=== PATIENT | female | born 1945 | race Caucasian/White ===

== ENCOUNTER → 2018-12-30 11:35 | Outpatient (CLI) | payer MEDICARE, BC, SELFPAY ==
--- NOTE | 2018-12-30 11:43 | XR_ITS ---
EXAM: XR cervical spine 5V HISTORY: Neck pain and stiffness ITS.REASON: NECK STIFFNESS ORDERING PHYSICIAN: Lizette Long PATIENT AGE: 73 years COMPARISON: None FINDINGS: There is normal alignment. There is slight reversal of the cervical lordosis. Moderate to severe degenerative disc disease is present at C4-C5 C5-C6 and C6-C7. There is uncovertebral hypertrophy with mild foraminal narrowing on the right at C4-C5 and on the left at C3-C4 and C4-C5 and C6-C7. Prominent facet hypertrophic changes noted on the left at C3-C4 and C5. No fracture or dislocation. No lytic or blastic change. IMPRESSION: Cervical spondylosis with degenerative disc disease and foraminal narrowing as described above
== END ==
PROVIDERS: PCP Family Medicine; Visit Provider Nurse Practitioner Family
DX: M43.6 Torticollis (principal)
CPT/HCPCS: 72050

== ENCOUNTER → 2019-01-12 07:43 | Outpatient (CLI) | payer MEDICARE, BC, SELFPAY ==
--- NOTE | 2019-01-12 07:46 | MR_ITS ---
MR cervical spine wo con, MR 3-d myelogram/MRCP HISTORY: Bilateral neck pain . Unable to fully turn neck. . ITS.REASON: ARTHRITIS, STIFF NECK ORDERING PHYSICIAN: Lizette Long PATIENT AGE: 73 years Comparison: X-RAY 12-30-18. TECHNIQUE: Standard multiplanar multiecho sequences are performed without contrast. 3-D MIP and myelographic images are also rendered and reviewed FINDINGS: There is normal alignment. There are slight reversal of the mid cervical lordosis. The craniocervical junction has an unremarkable appearance. There is mild hypertrophic change along the posterior aspect of the dens. This is not causing any compression upon the cord however. C2-C3: Unremarkable. C3-C4: Mild degenerative disc disease. There is mild bilateral foraminal narrowing from uncovertebral hypertrophy. C4-C5: Degenerative disc disease with mild bilateral foraminal narrowing from uncovertebral hypertrophy. There is minimal bulging disc and there is narrowing of the canal at 10 mm. There is minimal contour deformity along the anterior aspect of the cord. C5-C6: Degenerative disc disease with bulging disc with associated endplate hypertrophic changes with narrowing of the canal at 10 mm with mild contour deformity along the anterior aspect of the cord.. There is mild right-sided foraminal narrowing from uncovertebral hypertrophy. C6-C7: Mild degenerative disc disease. C6-C7: Mild degenerative disc disease. No extruded herniated disc evident. IMPRESSION: 1. Multilevel cervical spondylosis with degenerative disc disease bulging disc along with facet ligamentum flavum hypertrophy. Please see above for detailed description at each level. There is mild narrowing of the canal at C4 C5 and C5-C6 2. C4-C5: Degenerative disc disease with mild bilateral foraminal narrowing from uncovertebral hypertrophy. There is minimal bulging disc and there is narrowing of the canal at 10 mm. There is minimal contour deformity along the anterior aspect of the cord. 3. C5-C6: Degenerative disc disease with bulging disc with associated endplate hypertrophic changes with narrowing of the canal at 10 mm with mild contour deformity along the anterior aspect of the cord.. There is mild right-sided foraminal narrowing from uncovertebral hypertrophy. 4. No extruded herniated disc evident
== END ==
PROVIDERS: PCP Nurse Practitioner Family; Visit Provider Nurse Practitioner Family
DX: M19.90 Unspecified osteoarthritis, unspecified site (principal); M43.6 Torticollis
CPT/HCPCS: 72141; 76376

== ENCOUNTER → 2022-03-25 09:57 | Outpatient (POV) | payer MEDICARE, BC, SELFPAY | PROVIDERS: Visit Provider Dermatology | DX: Z00.00 Encounter for general adult medical examination without abnormal findings (principal) ==

== ENCOUNTER 2023-08-31 15:26 | Emergency (ER) | payer MEDICARE, BC, SELFPAY ==
[2023-08-31 15:30] VITALS: BP 186/81; PULSE 58; RESP 22; TEMP 36.7; O2SAT 97; BMI 27.4
--- NOTE | 2023-08-31 15:36 | EXP.UTC ---
Discharge Plan Disposition Patient Disposition: Home, Self-Care Condition: Good Prescriptions Prescriptions: New methylprednisolone 4 mg Tablets,Dose Pack 4 mg PO DIRECTED Qty: 21 0RF Referrals Follow up/Referrals: Yosi Lo MD [Primary Care Provider] - See instructions Activity Restrictions/Add. Instructions Additional Instructions/Restrictions: Go home and rest. It would be best if you rested tomorrow too. Start the oral steroids tomorrow. Take them as directed. Follow up with your regular doctor. Follow up with orthopedics if you continue to have hip pain. I put in a referral to Dr. Wright. Please call and schedule an appointment. GO TO THE ER FOR ANY WORSENING SYMPTOMS OR CONCERN, ESPECIALLY BOWEL OR BLADDER ISSUES, SADDLE AREA NUMBNESS, FEVER, ETC Clinical Impressions Clinical Impression: Bursitis of left hip Instructions Patient Instructions: Bursitis, DI for Bursitis Discharge ED Provider: Chriss Priest [facility] [place] General Stated complaint: left side hip pain, no known accident Time Seen by Provider: 08/31/23 15:36 History of Present Illness Provider Complaint: She c/o left hip pain for the past 2 weeks. She denies any injury. Related Data Previous Rx's Medication Instructions Recorded methylprednisolone 4 mg tablets in 4 mg PO DIRECTED #21 tabs 08/31/23 a dose pack Allergies Allergy/AdvReac Type Severity Reaction Status Date / Time iodine Allergy Verified 08/31/23 15:49 [facility] Disclaimer: The information contained in this section may have been updated after the patient was seen, as this information can be updated by other users. Surgical History (Updated 08/31/23 @ 15:54 by Yasmeen Rachel RN) History of cholecystectomy History of tubal ligation Social History Smoking Status: Never smoker alcohol intake: never current occupational status: retired Travel in the last 8 weeks: None ROS Obtained: Yes All systems reviewed & no additional complaints except as documented Constitutional Constitutional: Denies chills and Denies fever(s) Eyes Eyes: Denies eye discharge ENT Ears, Nose, Mouth, and Throat: Denies dizziness, Denies otalgia and Denies sore throat Cardiovascular Cardiovascular: Denies chest pain Respiratory Respiratory: Denies shortness of breath, Denies chest congestion, Denies cough, Denies stridor and Denies wheezing Gastrointestinal Gastrointestingal: Denies nausea or vomiting Musculoskeletal Musculoskeletal: Reports as per HPI Integumentary/Breasts Skin/Breast: Denies rash Neurologic Neurologic: Denies dizziness and Denies paresthesias Allergic/Immunologic Allergic/Immunologic: Denies wheezing Physical Exam General General appearance: alert and in no apparent distress Head Head exam: atraumatic, normocephalic and normal inspection Eye Eye exam: Present normal appearance, PERRL and EOMI ENT ENT exam: Present normal exam, normal oropharynx, mucous membranes moist, TM's normal bilaterally and normal external ear exam Neck Neck exam: Present normal inspection, full ROM and trachea midline; Absent meningismus or lymphadenopathy Chest Chest inspection: Present normal inspection and symmetric chest wall rise; Absent tenderness Respiratory Respiratory exam: Present normal lung sounds bilaterally; Absent respiratory distress Cardiovascular Cardiovascular exam: Present regular rate and normal rhythm; Absent JVD Abdominal Exam Abdominal exam: Present soft and normal bowel sounds; Absent distention, tenderness or guarding Extremities Exam Extremities exam: Present normal capillary refill; Absent calf tenderness Expanded Lower Extremity Exam Left: Hip/Pelvis exam: Present pelvis stable, swelling, ecchymosis, deformity, dislocation, external rotation, internal rotation, shortening of leg, pain on hip/pelvis palpation, hip pain on leg movement, erythema, crepitus, laceration and abrasion; Absent full ROM or tenderness
--- NOTE | 2023-08-31 15:39 | XR_ITS ---
FINAL REPORT CLINICAL HISTORY: pain x 3 days no known trauma FINDINGS: LEFT HIP 2 views of the left hip and AP view of the pelvis are obtained. There is no acute fracture or dislocation. There are mild degenerative changes of the lower lumbar spine and bilateral hips. Visualized joint spaces are normally aligned. There is no acute soft tissue abnormality. IMPRESSION: No acute bony abnormality. Reviewed, Interpreted and Dictated by Damaso Fay III, MD Transcribed by Jennifer Baird Authenticated and [facility]
[2023-08-31 16:28] VITALS: BP 186/81; PULSE 58; RESP 22; TEMP 36.7; O2SAT 97
== END 2023-08-31 16:33 | disposition home or self-care (01) ==
PROVIDERS: Emergency Provider Nurse Practitioner Family; PCP Family Medicine
DX: M70.72 Other bursitis of hip, left hip (principal)
CPT/HCPCS: 73502; 96372; 99204; 99212; G0463

== ENCOUNTER 2024-10-13 12:52 | Emergency (ER) | payer MEDICARE, BC, SELFPAY ==
[2024-10-13 12:53] VITALS: BP 108/69; PULSE 66; RESP 16; TEMP 36.7; O2SAT 98; BMI 24.2
--- NOTE | 2024-10-13 12:57 | HMH.EDGENADL ---
Discharge Plan Disposition Patient Disposition: Home, Self-Care Condition: Fair Prescriptions Prescriptions: New ondansetron 4 mg tablet,disintegrating 4 mg PO Q6H PRN (Reason: nausea and vomiting) Qty: 10 0RF No Action methylprednisolone 4 mg Tablets,Dose Pack 4 mg PO DIRECTED Qty: 21 0RF Referrals Follow up/Referrals: Marc Wright DO [Staff Physician] - See instructions Courtney Oliveros APRN [Primary Care Provider] - See instructions Activity Restrictions/Add. Instructions Additional Instructions/Restrictions: Please use weightbearing as tolerated, elevate your extremity, please start taking an aspirin a day due to the immobilization, and utilize the crutches when trying to ambulate to prevent injury. Return to the ER for any increasing pain redness or swelling of your left lower leg. I have referred you to orthopedics. Please call on Thursday to make an appointment. Clinical Impressions Clinical Impression: Left knee sprain Qualifiers: Encounter type: initial encounter Involved ligament of knee: unspecified ligament Qualified Code(s): S83.92XA - Sprain of unspecified site of left knee, initial encounter Print Language Print Language: Filipino Discharge ED Provider: Sharad Nicolas General Adult HPI <JOSE Almazan - Last Filed: 10/13/24 15:05> General Chief complaint: Fall Stated complaint: L ankle knee pain ao Time Seen by Provider: 10/13/24 12:57 History of Present Illness HPI narrative: Patient presents for evaluation of a fall and left lower extremity injury. Patient states that she was going down to feed the ducks when she slipped landing in a hurdler stretch position. Her left leg was folded up underneath her and she landed on it with her right leg outstretched. 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 Patient with great difficulty manage to pull herself back up and hobble to the house. She states that she has had increasing difficulty bearing weight or moving her knee since. She also complains of ankle pain and left hip pain in the same side. She denies any other injury or trauma including neck pain back pain head pain and she did not hit any other area of her body. Related Data Previous Rx's ?Medication ?Instructions ?Recorded methylprednisolone 4 mg tablets in 4 mg PO DIRECTED #21 tabs 08/31/23 a dose pack ondansetron 4 mg disintegrating 4 mg PO Q6H PRN nausea and 10/13/24 tablet vomiting #10 tabs Allergies Allergy/AdvReac Type Severity Reaction Status Date / Time iodine Allergy Verified 08/31/23 15:49 [facility] <JOSE Almazan - Last Filed: 10/13/24 15:05> [facility] Disclaimer: The information contained in this section may have been updated after the patient was seen, as this information can be updated by other users. Surgical History (Updated 08/31/23 @ 15:54 by Yasmeen Rachel RN) History of tubal ligation History of cholecystectomy Social History (Updated 09/01/23 @ 14:55 by Chriss Priest APRN) Smoking Status: Never smoker alcohol intake: never current occupational status: retired <JOSE Almazan - Last Filed: 10/13/24 15:05> ROS Obtained: Yes Systems reviewed as appropriate & no additional complaints except as documented Physical Exam <JOSE Almazan - Last Filed: 10/13/24 15:05> General General appearance: alert and in no apparent distress Respiratory Respiratory exam: Present normal lung sounds bilaterally Cardiovascular Cardiovascular exam: Present regular rate Neurological Exam Neurological exam: Present alert and oriented X3 Medical Decision Making <JOSE Almazan - Last Filed: 10/13/24 15:05> Medical Records Medical records reviewed: Yes I reviewed the patient's medical records. Screening: Per USPSTF and CDC recommendations, given the prevalence of disease in our region, it is our hospital?s policy to screen for HIV and viral Hepatitis for all patients aged 18 and over and those with ongoing risk factors. Kai Inquiry Pt receiving controlled substance: No Vital Signs: 10/13/24 12:53 10/13/24 13:01 10/13/24 15:10 Temperature 98.0 F 98.6 F Temperature Source Oral Oral Pulse Rate 83 78 Pulse Rate [Left Radial] 66 Respiratory Rate 16 20 Blood Pressure 117/71 117/71 Blood Pressure [Right Arm] 108/69 L Blood Pressure Mean [Right Arm] 82 Blood Pressure Source Automatic Cuff 02 Sat by Pulse Oximetry 98 97 Oxygen Delivery Method Room Air Room Air Room Air Lab Data Lab results reviewed: Yes I reviewed the patient's lab results. Lab Results 10/13/24 13:15: WBC 6.2, RBC 4.20, Hgb 11.9 L, Hct 36.1 L, MCV 86.0, MCH 28.3, MCHC 32.9, RDW 16.8, Plt Count 239, MPV 8.5, Neut % (Auto) 59.5, Lymph % (Auto) 26.7, Sweet Grass % (Auto) 8.5, Eos % (Auto) 4.4, Baso % (Auto) 0.9, Neut # (Auto) 3.7, Lymph # (Auto) 1.7, Sweet Grass # (Auto) 0.5, Eos # (Auto) 0.3, Baso # (Auto) 0.1, PT 10.4, INR 0.92, Sodium 137, Potassium 4.3, Chloride 105, Carbon Dioxide 27, Anion Gap 9.3, BUN 14, Creatinine 0.60, Estimated Creat Clear 51, Estimated GFR 97, Est GFR ( Amer) 117, Glucose 115 H, Calcium 9.0, Total Bilirubin 0.4, AST 24, ALT 15, Alkaline Phosphatase 87, Total Protein 6.6, Albumin 4.0, Globulin 2.6, Albumin/Globulin Ratio 1.5, Hepatitis C Antibody Non reactive, HIV 1&2 Antibody Rapid Nonreactive 10/13/24 13:15 10/13/24 13:15 Orders (Tests/Meds): ED MEDICATIONS Discontinued Medications Generic Name Dose Route Start Last Admin Trade Name [place]q PRN Reason Stop Dose Admin Acetaminophen 1,000 mg 10/13/24 13:05 10/13/24 13:18 Acetaminophen 1,000mg/100ml Vial IV 10/13/24 13:06 1,000 mg ONCE ONE Administration Hydromorphone HCl 1 mg 10/13/24 13:05 10/13/24 13:18 Hydromorphone 2mg/Ml Syringe IV 10/13/24 13:06 1 mg ONCE ONE Administration Sodium Chloride 1,000 mls @ 999 mls/hr 10/13/24 13:05 10/13/24 13:18 Sod Chlor 0.9% 1000ml Bag IV 10/13/24 14:05 999 mls/hr .Q1H1M ONE Administration Ketorolac Tromethamine 15 mg 10/13/24 13:05 10/13/24 13:25 Ketorolac 30mg/Ml Vial IV 10/13/24 13:06 15 mg ONCE ONE Administration Ondansetron HCl 4 mg 10/13/24 13:05 10/13/24 13:18 Ondansetron 4mg/2ml Vial IV 10/13/24 13:06 4 mg ONCE ONE Administration Promethazine HCl 12.5 mg 10/13/24 14:05 10/13/24 14:08 Promethazine Hcl 25mg/Ml 1ml Vial IV 10/13/24 14:06 12.5 mg ONCE ONE Administration Sodium Chloride 25 ml 10/13/24 14:05 10/13/24 14:07 Sodium Chloride 0.9% 25ml Bag IV 10/13/24 14:06 25 ml ONCE ONE Administration ORDERS Category Date Time Status CT knee LT wo con Stat Cat Scan 10/13/24 14:28 Completed Ankle XR - Left minimum 3 Views [XR ankle LT min 3V] Exams 10/13/24 13:05 Completed Stat Femur XR left 2 views [XR femur LT 2V] Stat Exams 10/13/24 13:05 Completed Foot XR left minimum 3 views [XR foot LT min 3V] Stat Exams 10/13/24 13:34 Completed Knee XR left 3 views [XR knee LT 3V] Stat Exams 10/13/24 13:05 Completed Tibia/fibula XR left 2 views [XR tibia fibula LT 2V] Exams 10/13/24 13:05 Completed Stat XR hip LT 2-3V w/pelvis Stat Exams 10/13/24 13:05 Completed CBC w/Auto Diff [Complete Blood Count Auto Diff] Stat Lab 10/13/24 13:15 Completed CMP [Comprehensive Metabolic Panel] Stat Lab 10/13/24 13:15 Completed HIV (1&2) Antibody Rapid Stat Lab 10/13/24 13:15 Completed Hep C Ab with Reflex to RNA Stat Lab 10/13/24 13:15 Completed INR [Prothrombin Time INR] Stat Lab 10/13/24 13:15 Completed Medical Decision Narrative: In summary patient is a 9-year-old female who presents to the emergency department for evaluation of fall and left lower extremity injury. Patient is hemodynamically stable upon arrival, afebrile. Physical exam is remarkable for significant left knee swelling and tenderness to palpation medially primarily. Patient has exquisite tenderness to attempt of range of motion testing. Additionally patient is tender at the bilateral malleoli but no obvious bony deformity, she has tenderness in the left gluteus muscle but pelvis appears stable to compression. She is neurovascular intact distally. He has no other palpable or visible trauma elsewhere including a nontender dorsal spine has full C-spine range of motion and right lower extremity has full range of motion without neurovascular compromise or pain. Differential diagnosis includes fracture versus prosthetic disruption versus strain etc. Initial workup will be conducted with hematologic labs plain film x-rays.. Initial interventions include crystalloid bolus Toradol Tylenol Dilaudid. Initial workup reviewed by me shows that her hematologic labs are nonactionable and my informal interpretation of her plain film x-rays shows no acute fracture but does show significant knee effusion prior to radiology read, however radiology felt there could be possibly periprosthetic fractures on plain film imaging and recommended a noncontrast CT. I ordered as the radiology suggested and unfortunately I am unable to interpret due to scatter however the radiologist was able to confirm that there is no periprosthetic fracture. Given this while there is no acute fracture there is definitely soft tissue injury. However I feel patient will benefit from knee immobilization with weightbearing as tolerated and crutches and referral to orthopedics. Thus patient is appropriate for discharge and she will be placed on an aspirin a day for DVT prevention and strict return precautions. <Sharad Nicolas MD - Last Filed: 10/16/24 07:29> Vital Signs: 10/13/24 12:53 10/13/24 13:01 10/13/24 15:10 Temperature 98.0 F 98.6 F Temperature Source Oral Oral Pulse Rate 83 78 Pulse Rate [Left Radial] 66 Respiratory Rate 16 20 Blood Pressure 117/71 117/71 Blood Pressure [Right Arm] 108/69 L Blood Pressure Mean [Right Arm] 82 Blood Pressure Source Automatic Cuff 02 Sat by Pulse Oximetry 98 97 Oxygen Delivery Method Room Air Room Air Room Air Lab Data Lab Results 10/13/24 13:15: WBC 6.2, RBC 4.20, Hgb 11.9 L, Hct 36.1 L, MCV 86.0, MCH 28.3, MCHC 32.9, RDW 16.8, Plt Count 239, MPV 8.5, Neut % (Auto) 59.5, Lymph % (Auto) 26.7, Sweet Grass % (Auto) 8.5, Eos % (Auto) 4.4, Baso % (Auto) 0.9, Neut # (Auto) 3.7, Lymph # (Auto) 1.7, Sweet [place] # (Auto) 0.5, Eos # (Auto) 0.3, Baso # (Auto) 0.1, PT 10.4, INR 0.92, Sodium 137, Potassium 4.3, Chloride 105, Carbon Dioxide 27, Anion Gap 9.3, BUN 14, Creatinine 0.60, Estimated Creat Clear 51, Estimated GFR 97, Est GFR ( Amer) 117, Glucose 115 H, Calcium 9.0, Total Bilirubin 0.4, AST 24, ALT 15, Alkaline Phosphatase 87, Total Protein 6.6, Albumin 4.0, Globulin 2.6, Albumin/Globulin Ratio 1.5, Hepatitis C Antibody Non reactive, HIV 1&2 Antibody Rapid Nonreactive Orders (Tests/Meds): ED MEDICATIONS Discontinued Medications Generic Name Dose Route Start Last Admin Trade Name Freq PRN Reason Stop Dose Admin Acetaminophen 1,000 mg 10/13/24 13:05 10/13/24 13:18 Acetaminophen 1,000mg/100ml Vial IV 10/13/24 13:06 1,000 mg ONCE ONE Administration Hydromorphone HCl 1 mg 10/13/24 13:05 10/13/24 13:18 Hydromorphone 2mg/Ml Syringe IV 10/13/24 13:06 1 mg ONCE ONE Administration Sodium Chloride 1,000 mls @ 999 mls/hr 10/13/24 13:05 10/13/24 13:18 Sod Chlor 0.9% 1000ml Bag IV 10/13/24 14:05 999 mls/hr .Q1H1M ONE Administration Ketorolac Tromethamine 15 mg 10/13/24 13:05 10/13/24 13:25 Ketorolac 30mg/Ml Vial IV 10/13/24 13:06 15 mg ONCE ONE Administration Ondansetron HCl 4 mg 10/13/24 13:05 10/13/24 13:18 Ondansetron 4mg/2ml Vial IV 10/13/24 13:06 4 mg ONCE ONE Administration Promethazine HCl 12.5 mg 10/13/24 14:05 10/13/24 14:08 Promethazine Hcl 25mg/Ml 1ml Vial IV 10/13/24 14:06 12.5 mg ONCE ONE Administration Sodium Chloride 25 ml 10/13/24 14:05 10/13/24 14:07 Sodium Chloride 0.9% 25ml Bag IV 10/13/24 14:06 25 ml ONCE ONE Administration ORDERS Category Date Time Status CT knee LT wo con Stat Cat Scan 10/13/24 14:28 Completed Ankle XR - Left minimum 3 Views [XR ankle LT min 3V] Exams 10/13/24 13:05 Completed Stat Femur XR left 2 views [XR femur LT 2V] Stat Exams 10/13/24 13:05 Completed Foot XR left minimum 3 views [XR foot LT min 3V] Stat Exams 10/13/24 13:34 Completed Knee XR left 3 views [XR knee LT 3V] Stat Exams 10/13/24 13:05 Completed Tibia/fibula XR left 2 views [XR tibia fibula LT 2V] Exams 10/13/24 13:05 Completed Stat XR hip LT 2-3V w/pelvis Stat Exams 10/13/24 13:05 Completed CBC w/Auto Diff [Complete Blood Count Auto Diff] Stat Lab 10/13/24 13:15 Completed CMP [Comprehensive Metabolic Panel] Stat Lab 10/13/24 13:15 Completed HIV (1&2) Antibody Rapid Stat Lab 10/13/24 13:15 Completed Hep C Ab with Reflex to RNA Stat Lab 10/13/24 13:15 Completed INR [Prothrombin Time INR] Stat Lab 10/13/24 13:15 Completed Medical Decision Narrative: In summary patient is a 79-year-old female who presents to the emergency department for evaluation of fall and left lower extremity injury. Patient is hemodynamically stable upon arrival, afebrile. Physical exam is remarkable for significant left knee swelling and tenderness to palpation medially primarily. Patient has exquisite tenderness to attempt of range of motion testing. Additionally patient is tender at the bilateral malleoli but no obvious bony deformity, she has tenderness in the left gluteus muscle but pelvis appears stable to compression. She is neurovascular intact distally. He has no other palpable or visible trauma elsewhere including a nontender dorsal spine has full C-spine range of motion and right lower extremity has full range of motion without neurovascular compromise or pain. Differential diagnosis includes fracture versus prosthetic disruption versus strain etc. Initial workup will be conducted with hematologic labs plain film x-rays.. Initial interventions include crystalloid bolus Toradol Tylenol Dilaudid. Initial workup reviewed by me shows that her hematologic labs are nonactionable and my informal interpretation of her plain film x-rays shows no acute fracture but does show significant knee effusion prior to radiology read, however radiology felt there could be possibly periprosthetic fractures on plain film imaging and recommended a noncontrast CT. I ordered as the radiology suggested and unfortunately I am unable to interpret due to scatter however the radiologist was able to confirm that there is no periprosthetic fracture. Given this while there is no acute fracture there is definitely soft tissue injury. However I feel patient will benefit from knee immobilization with weightbearing as tolerated and crutches and referral to orthopedics. Thus patient is appropriate for discharge and she will be placed on an aspirin a day for DVT prevention and strict return precautions. I was consulted by the STEPHANE, and we discussed the complexity of the problems being addressed. I approved the treatment and management plan for this patient's care in the Emergency Department, thus performing a substantive portion of the medical decision making. Sharad Nicolas MD Critical Care <JOSE Almazan - Last Filed: 10/13/24 15:05> Critical Care Time Critical Care Time: No
[2024-10-13 13:01] VITALS: BP 117/71; PULSE 83; O2SAT 97
--- NOTE | 2024-10-13 13:05 | XR_ITS ---
PROCEDURE INFORMATION: Exam: XR Left Knee Exam date and time: 10/13/2024 1:24 PM Age: 79 years old Clinical indication: Pain and injury or trauma; Fall; Blunt trauma; Knee; Left; Additional info: Fall, lt leg pain TECHNIQUE: Imaging protocol: Radiologic exam of the left knee. Views: 3 views. COMPARISON: CR XR TIBIA FIBULA LT 2V 10/13/2024 1:21 PM FINDINGS: Bones/joints: Complete left knee arthroplasty in adequate alignment. Small periprosthetic linear lucencies are again noted at the posterior femoral component of the arthroplasty. Small suprapatellar effusion. No other acutely displaced skeletal fractures. No joint dislocation. Soft tissues: Mild anterior knee swelling IMPRESSION: 1. Again seen are small periprosthetic linear lucencies at the posterior femoral component of the arthroplasty. Suspicious for periprosthetic fractures versus artifact. Consider follow-up with noncontrast CT. 2. Small suprapatellar effusion.
--- NOTE | 2024-10-13 13:05 | XR_ITS ---
PROCEDURE INFORMATION: Exam: XR Left Hip Exam date and time: 10/13/2024 1:23 PM Age: 79 years old Clinical indication: Pain and injury or trauma; Fall; Blunt trauma (contusions or hematomas); Hip pain; Left hip; Additional info: Fall, lt leg pain TECHNIQUE: Imaging protocol: Radiologic exam of the left hip. Views: 2 or 3 views hip with pelvis when performed. COMPARISON: CR XR HIP LT 2-3V W/PELVIS 08/31/2023 3:46 PM FINDINGS: Bones/joints: Normal anatomic alignment. The bone density is normal for this patient's age. 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 Mild osteoarthritis of the right hip joint. There are mild degenerative changes of the sacroiliac joints. No acutely displaced fractures. No joint dislocation. No aggressive osseous lesions. Soft tissues: There is no significant soft tissue swelling. IMPRESSION: No acute skeletal pathology.
--- NOTE | 2024-10-13 13:05 | XR_ITS ---
PROCEDURE INFORMATION: Exam: XR Left Femur Exam date and time: 10/13/2024 1:22 PM Age: 79 years old Clinical indication: Pain and injury or trauma; Fall; Blunt trauma; Thigh or upper leg; Left; Hip; Additional info: Fall, lt leg pain TECHNIQUE: Imaging protocol: Radiologic exam of the left femur. Views: 2 views. COMPARISON: CR XR TIBIA FIBULA LT 2V 10/13/2024 1:21 PM FINDINGS: Bones/joints: Partially seen left knee arthroplasty. Please review knee films performed concomitantly. The bone density is normal for this patient's age. No acutely displaced fractures. No joint dislocation. Soft tissues: Mild anterior knee swelling. IMPRESSION: 1. No acute skeletal pathology. 2. Mild anterior knee swelling.
--- NOTE | 2024-10-13 13:05 | XR_ITS ---
PROCEDURE INFORMATION: Exam: XR Left Knee Exam date and time: 10/13/2024 1:21 PM Age: 79 years old Clinical indication: Pain and injury or trauma; Fall; Blunt trauma; Lower leg; Left TECHNIQUE: Imaging protocol: Radiologic exam of the left knee. Views: 1 or 2 views. COMPARISON: CR Ankle L 10/13/2024 1:20 PM FINDINGS: Bones/joints: Complete left knee arthroplasty in adequate alignment. Small periprosthetic linear lucencies at the posterior femoral component of the arthroplasty. Small suprapatellar effusion. No other acutely displaced skeletal fractures. No joint dislocation. Soft tissues: Mild anterior knee swelling IMPRESSION: 1. Small periprosthetic linear lucencies at the posterior femoral component of the arthroplasty. Suspicious for periprosthetic fractures versus artifact. Consider follow-up with noncontrast CT. 2. Small suprapatellar effusion.
--- NOTE | 2024-10-13 13:05 | XR_ITS ---
PROCEDURE INFORMATION: Exam: XR Left Ankle Exam date and time: 10/13/2024 1:20 PM Age: 79 years old Clinical indication: Pain and injury or trauma; Fall; Blunt trauma; Ankle; Left; Additional info: Fall, lt leg pain TECHNIQUE: Imaging protocol: Radiologic exam of the left ankle. Views: 3 or more views. COMPARISON: No relevant prior studies available. FINDINGS: Bones/joints: Chronic calcifications or osseous fragments inferior to the medial malleolus. Normal anatomic alignment. The bone density is normal for this patient's age. No acutely displaced fractures. No joint dislocation. Small plantar calcaneal spur. Small posterior calcaneal enthesophyte. Soft tissues: Moderate ankle swelling. IMPRESSION: 1. No acute skeletal pathology. 2. Moderate ankle swelling.
[2024-10-13] MEDS: ONDANSETRON 4MG/2ML VIAL 4 MG IV (13:18)
[2024-10-13] MEDS: HYDROMORPHONE 2MG/ML SYRINGE 1 MG IV (13:18)
[2024-10-13] MEDS: 0.9 % SODIUM CHLORIDE 1000ML 1,000 ML 999 ML IV (13:18)
[2024-10-13] MEDS: ACETAMINOPHEN 1,000MG/100ML VIAL 1000 MG IV (13:18)
[2024-10-13] MEDS: KETOROLAC 30MG/ML VIAL 15 MG IV (13:25)
--- NOTE | 2024-10-13 13:34 | XR_ITS ---
PROCEDURE INFORMATION: Exam: XR Left Foot Exam date and time: 10/13/2024 1:26 PM Age: 79 years old Clinical indication: Pain and injury or trauma; Fall; Blunt trauma; Foot; Left TECHNIQUE: Imaging protocol: Radiologic exam of the left foot. Views: 3 or more views. COMPARISON: CR Ankle L 10/13/2024 1:20 PM FINDINGS: Bones/joints: There are moderate degenerative changes of the first metatarsophalangeal joint. Moderate osteoarthritis of the distal interphalangeal joints. Small plantar calcaneal spur. Small posterior calcaneal enthesophyte. Mild osteoarthritis of the tibiotalar joint. Normal anatomic alignment. The bone density is normal for this patient's age. No acutely displaced fractures. No joint dislocation. No aggressive osseous lesions. Soft tissues: Mild ankle swelling. IMPRESSION: 1. No acute skeletal pathology. 2. Mild ankle swelling.
[2024-10-13 13:40] LABS: Basophils # 0.1 K/mm3 (0-0.2); Basophils % 0.9 % (0.1-2.0); Eosinophils # 0.3 K/mm3 (0.0-0.4); Eosinophils % 4.4 % (0.1-12.0); Hematocrit 36.1 % (37.0-47.0); Hemoglobin 11.9 g/dL (12.2-16.2); Lymphocytes # 1.7 K/mm3 (0.7-4.5); Lymphocytes % 26.7 % (10-50); Mean Corpuscular HGB Conc 32.9 g/dL (31.8-35.4); Mean Corpuscular Hemoglobin 28.3 pg (27.0-31.2); Mean Platelet Volume 8.5 fl (7.4-10.4); Monocytes # 0.5 K/mm3 (0.1-1.0); Monocytes % 8.5 % (1.7-9.3); Neutrophils # 3.7 K/mm3 (1.8-7.8); Neutrophils % 59.5 % (37.0-80.0); Platelet Count 239 K/mm3 (142-424); Red Cell Distribution Width 16.8 % (11.5-17.5); White Blood Count 6.2 K/mm3 (4.8-10.8)
[2024-10-13 13:44] LABS: INR 0.92 (0.9-1.1); Prothrombin Time 10.4 seconds (10.1-12.5)
[2024-10-13 13:47] LABS: Alanine Aminotransferase 15 U/L (12-78); Albumin/Globulin Ratio 1.5 (1.1-1.8); Alkaline Phosphatase 87 U/L (38-126); Anion Gap 9.3 mEq/L (5-15); Aspartate Amino Transferase 24 U/L (14-36); Bilirubin,Total 0.4 mg/dl (0.2-1.3); Blood Urea Nitrogen 14 mg/dl (7-17); Carbon Dioxide 27 mmol/L (22.0-30.0); Chloride 105 mmol/L (98-107); Creatinine Clearance Estimated 51 mL/min (50-200); Estimated Glomerular Filt Rate 97 ml/min (>60); GFR (African American) 117 ML/MIN (>60); Globulin 2.6 g/dL (1.3-3.2); Glucose 115 mg/dl (74-100); Potassium 4.3 mmoL/L (3.5-5.1); Sodium 137 mmol/L (136-145); Total Protein,Serum 6.6 g/dl (6.3-8.2)
[2024-10-13] MEDS: SODIUM CHLORIDE 0.9% 25ML BAG 25 ML IV (14:07)
[2024-10-13] MEDS: PROMETHAZINE HCL 25MG/ML 1ML VIAL 12.5 MG IV (14:08)
--- NOTE | 2024-10-13 14:28 | CT_ITS ---
PROCEDURE INFORMATION: Exam: CT Left Lower Extremity, Knee Exam date and time: 10/13/2024 2:37 PM Age: 79 years old Clinical indication: Pain and injury or trauma; Fall; Blunt trauma; Left; Prior surgery; Surgery date: 6+ months; Surgery type: Knee replacement; Additional info: Fall, abn plain film x-ray, periprosthetic FX TECHNIQUE: Imaging protocol: CT of the left lower extremity without contrast was performed. Exam focused on the knee. Radiation optimization: All CT scans at this facility use at least one of these dose optimization techniques: automated exposure control; mA and/or kV adjustment per patient size (includes targeted exams where dose is matched to clinical indication); or iterative reconstruction. 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 I do not see periprosthetic fractures or other hardware complications. The complete left knee arthroplasties adequately aligned and seated. No acute fracture or dislocation. Moderate to large suprapatellar effusion. Soft tissues: Mild anterior knee swelling. IMPRESSION: 1. 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 I do not see any significant periprosthetic fractures or other hardware complications. 2. Moderate to large suprapatellar effusion.
[2024-10-13 14:48] LABS: HIV (1&2) Antibody Rapid NONREACTIVE (NONREACTIVE)
--- NOTE | 2024-10-13 14:54 | PC.NURSE ---
called rad for them to power share images to [place] and burn a disc
[2024-10-13 15:10] VITALS: BP 117/71; PULSE 78; RESP 20; TEMP 37; O2SAT 97
[2024-10-15 05:19] LABS: HCV Ab Non Reactive (Non Reactive)
== END 2024-10-13 15:34 | disposition home or self-care (01) ==
PROVIDERS: Physician Assistant; Emergency Provider Emergency Medicine; PCP Nurse Practitioner
DX: S83.92XA Sprain of unspecified site of left knee, initial encounter (principal); M79.662 Pain in left lower leg; M25.562 Pain in left knee; M25.572 Pain in left ankle and joints of left foot; W01.0XXA Fall on same level from slipping, tripping and stumbling without subsequent striking against object, initial encounter; Y93.89 Activity, other specified; Y92.89 Other specified places as the place of occurrence of the external cause
CPT/HCPCS: 73502; 73552; 73562; 73590; 73610; 73630; 73700; 80053; 85025; 85610; 86803; 87389; 96361; 96374; 96375; 99284; J0131; J1171; J1885; J2405; J2550; J7030

== ENCOUNTER 2025-04-25 15:31 | Outpatient (CLI) | payer MEDICARE, BC, SELFPAY ==
--- NOTE | 2025-04-25 15:35 | XR_ITS ---
FINAL REPORT TECHNIQUE: Chest PA & Lateral CLINICAL HISTORY: SOB, NUMBNESS IN HANDS AND ARMS COMPARISON: None FINDINGS: 2 views of the chest were performed. The heart size is normal. The mediastinum is within normal limits. There is no acute cardiopulmonary process. There is minimal scarring in the left mid lung. There are no pleural effusions. There is no pneumothorax. The bony thorax appears intact. IMPRESSION: No acute cardiopulmonary process. Reviewed, Interpreted and Dictated by Champ Castillo MD Transcribed by Kasia Sinclair Authenticated and [facility]
== END 2025-04-25 23:59 | disposition home or self-care (01) ==
LOC: RAD 15:32
PROVIDERS: PCP Family Medicine; Visit Provider Physician Assistant
DX: R06.02 Shortness of breath (principal); R20.0 Anesthesia of skin; R20.2 Paresthesia of skin
CPT/HCPCS: 71046

== ENCOUNTER 2025-05-08 09:14 | Outpatient (CLI) | payer MEDICARE, BC, SELFPAY ==
--- NOTE | 2025-05-08 09:30 | CA_ITS ---
APPROVED REPORT EXAM: Comprehensive 2D, Doppler, and color-flow Echocardiogram Trailer Technician: Joanne Brown RVT Ht: 5 ft 6 in Wt: 183lbs BSA: 1.93 BP: 151/82 mmHg Indications: Shortness of Breath 2D Dimensions LA Volume 57.20 mL LA Volume Index 29.64 mL/m2 (M/F) 16-34 M-Mode Dimensions RVDd 2.81 cm (0.9-2.6) LA Diam 3.96 cm (1.9-4.0) LVDd 4.63 cm (3.5-5.7) LVDs 2.43 cm (3.5-5.7) IVSd 0.83 cm (0.6-1.1) PWd 0.68 cm (0.6-1.1) EF (Teich) 78.90% FS 47.50% EDV (Teich) 98.80 mL ESV (Teich) 20.80 mL LV Diastology E Decel Time 150 (160-240 msec) E/A Ratio 1.3 Aortic Valve RACHNA Index 1.06 cm2/m2 AoV Peak Chente. 115.0 (50-130 cm/s) AO Peak GR. 5.30 mmHg AO Mean GR. 2.80 (<5 mmHg) AO VTI 25.8 (18-25 cm) RACHNA (VTI) 2.08 (2.5-4.5 cm2) Mitral Valve MV E Max Chente. 76.0 (40-130 cm/s) MV A Velocity 58.0 (40-130 cm/s) E/A Ratio 1.31 MV PHT 44.0 ms Pulmonary Valve PV Peak Velocity 83.0 (50-150 cm/s) Left Ventricle The left ventricle is normal size. The left ventricular systolic function is normal. The left ventricular ejection fraction is within the normal range. There is increased LV wall thickness. There is normal LV segmental wall motion. The left ventricular diastolic function is normal. LVEF is 55%. Right Ventricle The right ventricle is normal size. The right ventricular systolic function is normal. Atria Left atrium is mildly dilated. The right atrium is mildly dilated.There is no Doppler evidence of interatrial shunt. Aortic Valve Aortic valve is mildly thickened. There is no aortic valvular stenosis. Trace aortic regurgitation. Mitral Valve The mitral valve is normal in structure. No evidence of mitral valve stenosis. Mild mitral regurgitation. Tricuspid Valve Tricuspid valve is grossly normal in structure and function. Trace tricuspid regurgitation. There is insufficient TR jet to estimate RVSP. Pulmonic Valve The pulmonary valve is normal in structure. Trace pulmonic regurgitation. Great Vessels The aortic root is normal in size. IVC is normal in size and collapses >50% with inspiration. Pericardium There is no pericardial effusion. There is heterogeneous hyperechoic echodensity in the liver measuring approximately 2.5 cm in diameter. Other Information Study Quality: Fair Conclusion Normal biventricular systolic function. Mild biatrial dilation. Mild MR. Incidental finding of a heterogeneous hyperechoic echodensity in the liver measuring approximately 2.5 cm in diameter. Correlation with recent or new abdominal imaging is suggested. Electronically signed by : Chari Mccord MD 05/11/2025 09:28:30
== END 2025-05-08 23:59 | disposition home or self-care (01) ==
LOC: RT 09:15
PROVIDERS: PCP Family Medicine; Visit Provider Physician Assistant
DX: I34.0 Nonrheumatic mitral (valve) insufficiency (principal); I51.7 Cardiomegaly; R93.2 Abnormal findings on diagnostic imaging of liver and biliary tract; R20.0 Anesthesia of skin; R20.2 Paresthesia of skin
CPT/HCPCS: 93306

== ENCOUNTER 2025-05-30 09:38 | Outpatient (CLI) | payer MEDICARE, BC, SELFPAY ==
--- NOTE | 2025-05-30 10:00 | US_ITS ---
FINAL REPORT TECHNIQUE: Multiple transverse and longitudinal images CLINICAL HISTORY: heterogeneous hyperechoic mass FINDINGS: The gallbladder is surgically absent. No biliary ductal dilatation is appreciated. No fluid collections are seen. Limited portions of the right liver are unremarkable. Limited portions of the right kidney are unremarkable. Pancreas is largely obscured. IMPRESSION: Status postcholecystectomy, otherwise unremarkable. Reviewed, Interpreted and Dictated by Sahara Aponte MD Transcribed by Frances So Authenticated and [facility]
== END 2025-05-30 23:59 | disposition home or self-care (01) ==
LOC: RAD 09:39
PROVIDERS: PCP Family Medicine; Visit Provider Physician Assistant
DX: R16.0 Hepatomegaly, not elsewhere classified (principal); Z90.49 Acquired absence of other specified parts of digestive tract
CPT/HCPCS: 76705